=== PATIENT | male | born 1935 | race Caucasian/White ===

== ENCOUNTER → 2017-04-01 | Outpatient (CLI) | payer MEDICARE ==
[~2017-04-01] MED LIST: AMLO10TA4 PO; ASPI-496 PO; ATOR20TA9 PO; CARV12.543 PO; CHOL200024 PO; CLON1PAT9 TD; FINA5TAB4 PO; HYDR12.58 PO; INSU100V8 SQ; LISI-170 PO; TAMS0.4C2 PO
== END | disposition home or self-care (01) ==
LOC: CFH 08:49
PROVIDERS: ATTEND Surgery Vascular Surgery
DX: I71.4 Abdominal aortic aneurysm, without rupture (principal)
CPT/HCPCS: 93978

== ENCOUNTER → 2018-04-24 | Outpatient (CLI) | payer MEDICARE | END | disposition home or self-care (01) | LOC: CFH 10:25 | PROVIDERS: ATTEND Surgery Vascular Surgery | DX: I71.4 Abdominal aortic aneurysm, without rupture (principal); Z87.891 Personal history of nicotine dependence | CPT/HCPCS: 93978 ==

== ENCOUNTER → 2018-10-20 | Outpatient (CLI) | payer MEDICARE ==
[~2018-10-20] MED LIST changes: +ATOR20TA37 PO; -ATOR20TA9 PO; -HYDR12.58 PO; +HYDROCHLOROTH12.5 MG PO
== END | disposition home or self-care (01) ==
LOC: CVU 07:27
PROVIDERS: ATTEND Surgery Vascular Surgery
DX: I71.4 Abdominal aortic aneurysm, without rupture (principal); E11.9 Type 2 diabetes mellitus without complications; E78.00 Pure hypercholesterolemia, unspecified; I10 Essential (primary) hypertension; Z87.891 Personal history of nicotine dependence
CPT/HCPCS: 93978

== ENCOUNTER → 2019-06-26 | Outpatient (CLI) | payer MEDICARE ==
[~2019-06-26] MED LIST changes: +OMNIPAQUE 350 MG/ML, 100ML BOTTLE ONE
== END | disposition home or self-care (01) ==
LOC: CFH 12:18
PROVIDERS: ATTEND Internal Medicine
DX: I70.90 Unspecified atherosclerosis (principal); R22.40 Localized swelling, mass and lump, unspecified lower limb; N40.0 Benign prostatic hyperplasia without lower urinary tract symptoms; N43.3 Hydrocele, unspecified; F10.20 Alcohol dependence, uncomplicated
CPT/HCPCS: 73701; Q9967

== ENCOUNTER → 2019-07-17 | Outpatient (CLI) | payer MEDICARE ==
[~2019-07-17] MED LIST changes: -OMNIPAQUE 350 MG/ML, 100ML BOTTLE ONE
== END | disposition home or self-care (01) ==
LOC: CVU 10:32
PROVIDERS: ATTEND Surgery Vascular Surgery
DX: I70.8 Atherosclerosis of other arteries (principal); I71.4 Abdominal aortic aneurysm, without rupture; I10 Essential (primary) hypertension; E78.5 Hyperlipidemia, unspecified; E11.9 Type 2 diabetes mellitus without complications; Z87.891 Personal history of nicotine dependence; Z95.818 Presence of other cardiac implants and grafts; E78.00 Pure hypercholesterolemia, unspecified; F17.200 Nicotine dependence, unspecified, uncomplicated; Z88.8 Allergy status to other drugs, medicaments and biological substances; Z88.2 Allergy status to sulfonamides; Z79.899 Other long term (current) drug therapy
CPT/HCPCS: 93978

== ENCOUNTER → 2020-12-12 | Outpatient (CLI) | payer MEDICARE ==
[~2020-12-12] MED LIST changes: +ATOR10TA9 PO; +CARV25TA12 PO; +CHOL10003 PO; +CLOP75TA PO; +FURO-93 PO
== END | disposition home or self-care (01) ==
LOC: CFH 12:30
PROVIDERS: ATTEND Internal Medicine Cardiovascular Disease
DX: I08.3 Combined rheumatic disorders of mitral, aortic and tricuspid valves (principal); I11.9 Hypertensive heart disease without heart failure
CPT/HCPCS: 93306

== ENCOUNTER 2021-01-05 04:25 | Emergency (ER) | payer MEDICARE ==
[~2021-01-05] VITALS: Ht 180.3 cm; Wt 93.8 kg
[2021-01-05 04:27] VITALS: BP 130/77
--- NOTE | 2021-01-05 04:32 | NUR ---
EKG DONE IN TRIAGE. PT STATES HX OF AFIB AND ON ELIQUIS
--- NOTE | 2021-01-05 05:26 | NUR ---
SIGNED OUT WITH TRIAGE
== END 2021-01-05 05:30 | disposition left against medical advice (07) ==
LOC: ED 05:10
DX: R07.89 Other chest pain (principal); Z53.21 Procedure and treatment not carried out due to patient leaving prior to being seen by health care provider
CPT/HCPCS: 93005

== ENCOUNTER 2021-01-25 10:18 | Day surgery (SDC) | payer MEDICARE ==
[~2021-01-25] VITALS: Ht 180.3 cm; Wt 93.0 kg
[2021-01-25 10:53] VITALS: BP 154/75
[2021-01-25] MEDS ORDERED: SACU1TAB7 PO/NG (11:13)
[2021-01-25 11:17] LABS: ANION GAP 8 mmol/L (5-15); CALCIUM 8.8 mg/dL (8.5-10.1); CHLORIDE 106 mmol/L (98-107); CREATININE 1.44 mg/dL (0.7-1.3)
[2021-01-25] MEDS ORDERED: APIX5TAB4 PO (11:20)
[2021-01-25] MEDS ORDERED: PROPOFOL 10 MG/ML, 20ML ONE (12:00)
[2021-01-25] MEDS ORDERED: SODIUM CHLORIDE FLUSH 10ML SYR IVF SCH (21:00)
== END 2021-01-25 13:37 | disposition home or self-care (01) ==
LOC: CACL 10:18
PROVIDERS: ATTEND Internal Medicine Cardiovascular Disease
DX: I48.0 Paroxysmal atrial fibrillation (principal); I11.0 Hypertensive heart disease with heart failure; I50.9 Heart failure, unspecified; E78.2 Mixed hyperlipidemia; I25.10 Atherosclerotic heart disease of native coronary artery without angina pectoris; E11.9 Type 2 diabetes mellitus without complications; I42.9 Cardiomyopathy, unspecified; Z79.01 Long term (current) use of anticoagulants; Z88.5 Allergy status to narcotic agent; Z88.8 Allergy status to other drugs, medicaments and biological substances; Z79.899 Other long term (current) drug therapy; Z98.890 Other specified postprocedural states
CPT/HCPCS: 36415; 80048; 92960; J2704